=== PATIENT | male | born 1940 | race Caucasian/White ===

== ENCOUNTER 2016-08-13 21:50 | Emergency (ER) | payer MEDICARE, OTHER ==
[~2016-08-13] VITALS: Ht 177.8 cm; Wt 113.6 kg
[2016-08-13 22:03] VITALS: BP 173/66; PULSE 62; RESP 18; O2SAT 98
--- NOTE | 2016-08-13 22:07 | ED.REPORT ---
HPI-Chest Pain 40 and Over Date of Service Aug 13, 2016 ED Provider: Jose Dejesus MD History of Present Illness: Chart says "heart issues" but does not give any more infot Patient is a 75 year old male with a history of 3 stents that were placed March 2016, CABG, and CAD who presents to the ED complaining of left chest pain onset two weeks ago with his most current episode occurring three days ago. Associated symptoms include shortness of breath, diaphoresis, anxiety, leg swelling and pain that radiates into his jaw. He denies any extremity pain. Patient states that his symptoms presented two weeks ago while sitting and that he has had 1-2 episodes that lasted 20 minutes during that time. He did not have any episodes today. The pain was relieved after taking two nitroglycerin. The patient last took nitroglycerin two weeks ago. He reports that his symptoms are similar to when he had his stents placed. The patient reports that he saw Dr. Gregory, his primary care physician for a routine check up today who later called back recommending he visit the ED due to his blood results. He currently takes Plavix and ASA. Nursing Notes Stated Complaint: HEART ISSUES Chief Complaint: Chest Pain Nursing Notes Reviewed: Yes (Tracky, meds not reconciled) Allergies: Coded Allergies: No Known Allergies (Unverified , 08/13/16) General Time Seen by MD: 22:05 Chief Complaint Chest pain Hx Obtained From: Patient Arrived By: Walk-in Sudden in Onset?: No Onset Occurred: More than a week ago... (2 weeks) Symptom Duration: Intermittent Location: : Chest left Quality: Pressure Radiation: : Jaw Similar Sx Previous: Yes Past Medical History Past Medical History Notes: PCP Dr. Granado at [facility] [employer] Dr. Ashutosh Sánchez in [facility] Past Medical History Coronary artery disease CABG Chronic diastolic CHF Chronic hepatitis C Chronic low back pain Cervical spine stenosis Cognitive deficit poststroke COPD History of CVA GERD Hyperlipidemia Hypertension Obesity Peripheral vascular disease or loss Past Surgical History Patient describes prior cardiac catheterizations in [place], apparently had an in-stent restenosis requiring 3 stents in March 2016 Social History Other Social History: Good social support, Ambulatory Status Independent Review of Systems Respiratory: Reports: Shortness of breath, Denies: Non-productive cough Cardiovascular: Reports: Chest pain Musculoskeletal: Reports: Extremity swelling, Denies: Extremity pain Skin: Reports Diaphoresis Psychiatric: Reports: Anxiety Complete sys rev & neg: except as marked. Physical Exam Physical Exam Notes: fairly poor historian making it difficult to obtain symptoms and past medical history. Initial Vital Signs Vital Signs (First) Date Time Temp Pulse Resp B/P Pulse Ox O2 Delivery O2 Flow Rate FiO2 08/13/16 22:03 62 18 173/66 98 Room Air Initial VS: Reviewed, Unavailable (no vitals on chart) General/Constitutional: Awake, Alert, No acute distress Appearance / Presentation: Positive: Obese Respiratory / Chest: Atraumatic, Breath sounds NL, Breath sounds = bilat, No respiratory distress Cardiovascular: Heart rate NL, Regular rhythm, Heart sounds NL Abdomen: Atraumatic, Soft, Non-tender Neck: Atraumatic, Supple, Full range of motion Back: Atraumatic, Full range of motion Lower Extremity / Pelvis / MS: Atraumatic, Full range of motion, No edema Skin: Atraumatic, Color NL, No rash, Warm, Dry Neurologic: Oriented X3, Speech NL, No motor deficits, No sensory deficits Psychiatric: Affect NL, Mood NL Head / Eyes: Atraumatic, Normocephalic, PERRL, EOMI ENT: Atraumatic, Airway patent, Mucous membranes moist Upper Extremity / MS: Atraumatic, Full range of motion Interpretation & Diagnostics Interpretation & Diagnostics: Called and spoke to the on-call physician for the patient's clinic and the patient's troponin is elevated at 0.18, with the patient's troponin reference range at that facility with an abnormal being reported greater than 0.06 D-dimer was negative BNP 144 Hematocrit 36 Sodium 131 Creatinine 1.2 Lab Results Interpretation Result Diagram: 08/13/162229 Test 08/13/16 22:30 White Blood Count 7.8th/mm3 (3.8-10.1) Red Blood Count 4.02mil/mm3 (4.40-5.80) Hemoglobin 12.6g/dL (13.8-17.2) Hematocrit 36.7% (41.0-50.0) Mean Corpuscular Volume 91.3fL (81-100) Mean Corpuscular Hemoglobin 31.3pg (27.0-35.0) Mean Corpuscular Hemoglobin Concent 34.3% (32.0-37.0) Red Cell Distribution Width 12.5% (12.3-15.4) Platelet Count 192bil/L (150-400) Neutrophils (%) (Auto) 60.7% (40-74) Lymphocytes (%) (Auto) 20.7% (14-46) Monocytes (%) (Auto) 14.8% (4-12) Eosinophils (%) (Auto) 3.4% (0-5) Basophils (%) (Auto) 0.3% (0-3) Troponin T 0.051ug/L (0.0-0.011) Lab Results Interpretation: CBC normal Troponin elevated 0.51 Initial CMP hemolyzed, not repeated as I have been able to get the labs from earlier today from [facility] ECG Interpretation ECG Interpretation: Normal sinus rhythm at a rate of 60, right bundle branch block is present, no prior EKGs available for comparison. No clear acute definitive ischemic changes appreciated. Time: 22:00 Interpreted by: ED physician X-Ray Chest Interpretation Chest Xray Interpretation: no acute disease. View: Portable, 1 view Interpretation / Wet Read by: Wet read ED physician Re-Eval/Medical Decision Med Decision/Clinical Course This is a 75-year-old male who is a fairly poor historian was referred in for lab abnormality and told he might of had a "heart event". Patient reports he had a routine PCP follow-up this afternoon, which point he mentioned these been having some episodes of chest discomfort, jaw discomfort, diaphoresis, shortness of breath-minutes fairly challenging you pin him down on his timelines and events. It turns out he reports his symptoms are fairly identical to what he had when he required going to the [employer] [facility] for an in-stent restenosis event it sounds like in March. As best I been able to tell, his most recent episode of chest discomfort was 2 days ago. He denies having chest pain or symptoms at present. He reports he feels well and has no complaints. He has had his aspirin and Plavix today. He has had his metoprolol today. On arrival he is hypertensive, well-appearing and in no distress. His EKG revealed no clear acute ischemic changes, notable for right bundle branch block- no prior EKGs available for comparison. I called the on-call provider for his PCP [facility] able to get the labs that were done today, d-dimer is negative , troponin was elevated. The patient received aspirin, nitroglycerin paste 1-1/2 inches giving is hypertensive, and his blood pressure did improve. He is started on heparin as well. No beds are available at this hospital tonight, and so I called and there are beds at [facility] discussed the case with his regular lif[employer] representatives Dr. Sánchez who gracefully accepted the patient in transfer. The patient's hypertensive request a single dose of metoprolol which was administered. History a made stable, and is being transferred for continued management. Source of Hx: Old records (none in [facility]) Time of Eval: 23:30 Patient Status: Condition improved Re-Evaluation/Progress Note: Rechecked patient. Discussed results and plan for transfer. The patient understands and agrees to the plan for transfer. All questions were addressed. Consultation #1: Consulted With: On-call physician (for Dr. Gregory) Call Returned at: 22:23 Note: Consult with Dr King, on-call physician for Dr. Gregory, who reported that the patient's lab work suggested a possible [place] from his previous lab work. Consultation #2: Referral / Consult Name: Nupur Coe DO Consulted With: Hospitalist Call Returned at: 23:23 Note: Consult with Dr Coe, hospitalist who reports there are no available beds and that the patient should be transferred out. Consultation #3: Consulted With: Cardiology Call Returned at: 23:30 Director Of Religious Activities: Agrees with eval, Agrees with plan Note: Discussed patient's case with Dr. Sánchez, [facility] representatives, who recommends the patient receive a single dose of beta oumar before being transferred. Differential Diagnosis: Positive: Acute coronary syndrome, Acute myocardial infarct, Chest pain, acute, Unstable angina, Negative: Anxiety disorder, Aortic dissection, Asthma exacerbation, Bronchitis, Chest pain, Cholecystitis, Cholelithiasis, Congestive heart failure , Contusion, Costochondritis, Dysrhythmia, Esophageal rupture, Esophagitis, Gun shot wound chest, Hypertroph cardiomyopathy, Peptic ulcer disease, Pneumomediastinum, Pneumonia, Pneumothorax, Pulmonary edema, Pulmonary embolism , Rib fracture, Stab wound chest Counseled Regarding: Diagnosis, Lab results, Need for transfer Discharge & Departure Primary Impression: NSTEMI (non-ST elevated myocardial infarction) Disposition: Transfer, Acute Care Facility ([facility] Discharge Condition All VS Reviewed: Yes Condition: Stable Scribe Attestation Portions of this note were transcribed by Keily Zhao and Minnie Joseph. I, Dr. Key personally performed the history, physical exam and medical decision- making; I reviewed and confirmed the accuracy of the information in the transcribed note. Signed by: Keily Zhao and Minnie Joseph, Aileen, 08/13/16 and 2351. Jose Dejesus MD Aug 13, 2016 22:07 Dalila Zhao Aug 13, 2016 22:26
[2016-08-13] MEDS ORDERED: Heparin 5,000 Unit/mL Inj IVPUSH ONE (22:20)
[2016-08-13] MEDS ORDERED: Heparin 25K Unit/500mL 0.45 NS 25,000 UNIT in IV Premix 1 EACH IV ONE (22:20)
[2016-08-13] MEDS ORDERED: Nitroglycerin 2% 1 Gm Ointment TOPICAL SCH (22:20)
[2016-08-13 22:41] LABS: BASOPHILS % (AUTO) 0.3 % (0-3); EOSINOPHILS % (AUTO) 3.4 % (0-5); MONOCYTES % (AUTO) 14.8 % (4-12); Mean Corpuscular Hemoglobin 31.3 pg (27.0-35.0); Mean Corpuscular Volume 91.3 fL (81-100); NEUTROPHILS % (AUTO) 60.7 % (40-74); Platelet Count 192 bil/L (150-400)
[2016-08-13 22:49] VITALS: BP 153/66; PULSE 59; RESP 16; O2SAT 98
[2016-08-13 23:35] VITALS: BP 145/63; PULSE 58; RESP 11; O2SAT 98
[2016-08-13 23:45] VITALS: BP 157/64; PULSE 60; RESP 16; O2SAT 98
[2016-08-13] MEDS ORDERED: MeTOProlol 1 mg/mL 5 mL Inj IVPUSH ONE (23:45)
[2016-08-14 01:11] VITALS: BP 157/64; PULSE 60; RESP 16; O2SAT 98
--- NOTE | 2016-08-14 08:21 | DRSVH ---
PROCEDURE: X-RAY CHEST ONE VIEW, PORTABLE ([id number]) INDICATIONS: 75 year-old male with chest pain for 3 weeks. Coronary artery stenting March 2016. TECHNIQUE: One view of the chest was acquired. COMPARISON: None available. FINDINGS: Surgical changes and devices: Patient is status post median sternotomy. Lungs and pleura: No pleural effusions or pneumothorax. Lungs are clear. Mediastinum: Mediastinal contours appear normal. Heart size is normal. Bones and chest wall: No suspicious bony lesions. Overlying soft tissues appear unremarkable. IMPRESSION: No acute cardiopulmonary disease. Dictated by: Axel De Los Santos M.D. on 08/14/2016 at 8:19 Approved by: Axel De Los Santos M.D. on 08/14/2016 at 8:20
== END 2016-08-14 00:05 ==
LOC: SED 21:50
DX: I21.4 Non-ST elevation (NSTEMI) myocardial infarction (principal); I25.10 Atherosclerotic heart disease of native coronary artery without angina pectoris; I50.9 Heart failure, unspecified; I10 Essential (primary) hypertension; J44.9 Chronic obstructive pulmonary disease, unspecified; K21.9 Gastro-esophageal reflux disease without esophagitis; E78.5 Hyperlipidemia, unspecified; Z86.19 Personal history of other infectious and parasitic diseases; Z86.73 Personal history of transient ischemic attack (TIA), and cerebral infarction without residual deficits; Z95.1 Presence of aortocoronary bypass graft; Z98.61 Coronary angioplasty status
CPT/HCPCS: 36415; 71010; 84484; 85025; 93005; 96374; 96375; 99285; J1644